=== PATIENT | male | born 1935 | race Caucasian/White ===

== ENCOUNTER 2016-12-29 09:46 | Inpatient (IN) | payer MEDICARE, BC ==
[~2016-12-29] VITALS: Ht 167.6 cm; Wt 57.3 kg
[2016-12-29] MEDS ORDERED: ALPR.5 PO (12:47)
[2016-12-29] MEDS ORDERED: MELO7.5T4 PO (12:47)
[2016-12-29] MEDS ORDERED: XARE15TA PO (12:47)
[2016-12-29] MEDS ORDERED: BUTA1CAP PO (12:47)
[2016-12-29] MEDS ORDERED: LOVA20TA PO (12:47)
[2016-12-29] MEDS ORDERED: GABA600T PO (12:47)
[2016-12-29] MEDS ORDERED: ASPI1TAB69 PO (12:47)
--- NOTE | 2017-01-01 12:28 | MH ---
cc: NASIR FERNANDEZ M.D. DATE OF ADMISSION 01/07/2017 ADMITTING DIAGNOSIS Severe osteoarthritis of the left knee, varus deformity left knee, patellofemoral disorder left knee, pain left knee. HISTORY The patient is an 81-year-old white male who has had a rather lengthy history of pain involving his left knee. In October of 2012, he underwent a right total knee arthroplasty for a history of osteoarthritis and at that time he was aware of similar pain of a lesser degree involving his left knee. Symptoms involving his left knee were tolerable and the patient elected to continue with conservative management doing reasonably well while completing his postop rehabilitation following his right knee surgery. He presented to the office in October of 2014 and at that time he reported that during the previous six months, he was becoming progressively more symptomatic with pain about the left knee with a frequent grinding like sensation. He had been taking Naprosyn for pain management with only minimal benefit described. His x-ray studies at that time revealed obvious degenerative change with near [id number]-[id number] apposition about the medial compartment, associated with a genu varus deformity of approximately 10 degrees magnitude and intra-articular calcification throughout the lateral compartment. Findings and treatment options were reviewed with the patient at that time. He elected to continue with conservative management for which he was prescribed Meloxicam 15 mg and thereafter continuing to conform to his own exercise program feeling that he would be able to achieve as much benefit as returning to any form of therapy intervention. He returned to the office in November of this year indicating that with the passage of time, he was becoming increasingly more symptomatic with pain that began to interfere with all ambulatory activities. He was accustomed to conforming to ballroom dancing with his at least three times per week but had to discontinue this routine because of increasing symptoms involving his left knee. His more current x-ray studies revealed obvious degenerative change with oozq-hj-dhgy apposition throughout the medial compartment with an associated varus deformity of 10 degrees magnitude and intra-articular calcification throughout the lateral compartment secondary to degenerative involvement of the patellofemoral articulation. Findings and treatment options were again reviewed with the patient. The pros and cons of continuing with conservative management versus operative intervention involving a total knee arthroplasty were outlined in detail. Emphasis was made regarding the fact that the decision to proceed with surgery would be left entirely to the patient's discretion. The patient felt that he had exhausted all modes of conservative treatment and given the progressive nature of his pain involving his left knee, in conjunction with the favorable response that he had noted following surgery of his right knee, he expressed a desire to proceed with such treatment at this time. In compliance with his wishes, he is currently being admitted in order that left total knee replacement be accomplished. PAST MEDICAL HISTORY Hospitalizations and surgeries in addition to his right total knee arthroplasty included: 1. Previous arthroscopic surgery of his right knee 2. Cardiac bypass surgery His medical illnesses include: 1. Atrial fibrillation 2. Elevated cholesterol 3. Peripheral neuropathy MEDICATIONS current medications: 1. Xanax 0.5 mg daily 2. Lovastatin 20 mg daily 3. Meloxicam 7.5 mg daily 4. Fioricet as needed 5. Gabapentin 600 mg twice daily 6. 81 mg Aspirin tablet daily 7. Xarelto 15 mg daily ALLERGIES The patient denies any known drug allergies. REVIEW OF SYSTEMS He does wear glasses. He has had a history of migraine headaches. No seizure or syncope. Occasional sinus congestion. No epistaxis. Auditory acuity intact. No tinnitus. No bleeding gums or dysphagia. No cough, shortness of breath, upper respiratory infection, pneumonia or tuberculosis. No angina. He is medically managed for atrial fibrillation. Appetite good. Occasional constipation treated with pgyj-rkk-oslpmix products. No hepatitis, gallbladder disease or ulcers. He has had previous hemorrhoids. No urinary tract infection. No kidney stones. No prostate disease. Fracture of the right index finger treated by splint immobilization and psychiatric management for anxiety disorder. His remaining review of systems is unremarkable and noncontributory. FAMILY HISTORY The patient has been 60 years. His is 79 years of age and noted to be in good health. One son and two daughters indicated to be in good health. Family history is positive for heart disease and lung cancer. 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 He completed a high school education. Denies active use of tobacco and ethanol consumption for greater than 30 years, but had been a reasonably heavy drinker in his past. PHYSICAL EXAMINATION Height 5 feet 6 inches, weight 143 pounds. GENERAL: An alert, oriented responsive 81-year-old white male who sits quietly upon examination table with no apparent distress. HEAD, EYES, EARS, NOSE, AND THROAT: Pupils are equally round and reactive to light. Extraocular movements full with bilateral corneal arcus. Sclerae clear. External nares clear. External auditory canals clear. Dental intact. Mucous membranes pink and moist. Pharynx clear. NECK: Supple. Active range of motion without significant pain. Carotid pulse bilaterally. Trachea midline. Thyroid without enlargement. LUNGS: Clear to auscultation and percussion. No CVA tenderness. No discomfort throughout the dorsal lumbar spine. HEART: Regular irregular rhythm without murmur or gallop. ABDOMEN: Soft, nontender. Bowel sounds present. RECTAL: Per primary care physician. EXTREMITIES: Left knee, no significant swelling or effusion. There is slight varus deformity, medial joint line tenderness without palpable deformity. Apprehension and compression sign negative. Limited mobility in the 100 degrees range of motion with pain at the extreme of mobility, minimal crepitation elicited. No collateral ligamentous instability. Amy test and drawer sign negative. Pivot shift and Edna sign positive for medial compartment pain. Straight-leg raising negative at 80 degrees. Mild antalgic gait. NEUROLOGIC: Cranial nerves II-XII grossly intact. IMPRESSION Severe osteoarthritis of the left knee, varus deformity left knee patellofemoral disorder left knee, pain left knee. PLAN Left total knee arthroplasty. The nature of the planned surgical procedure, the potential complications and risks associated, the expectations of surgery and the consent form were thoroughly reviewed with the patient in the presence of his prior to admission to the hospital. Garrison has indicated his full understanding regarding all of the above and given consent to proceed with treatment as outlined. Medical evaluation and clearance for surgery will be completed by his primary care physician Dr. Carbone, cardiology clearance per Dr. Hardin. MD MARSHA Hussein/[place] /11:51 AM /12:04 PM
--- NOTE | 2017-01-12 09:00 | MH ---
cc: NASIR FERNANDEZ DATE OF ADMISSION: 01/14/2017 ADMITTING DIAGNOSIS Severe osteoarthritis of the left knee, varus deformity left knee, patellofemoral disorder left knee, pain left knee. HISTORY OF PRESENT ILLNESS The patient is an 81-year-old white male who has had a rather lengthy history of pain involving his left knee. In October of 2012, he underwent a right total knee arthroplasty for a history of osteoarthritis and at that time he was aware of similar pain of a lesser degree involving his left knee. Symptoms involving his left knee were tolerable and the patient elected to continue with conservative management doing reasonably well while completing his post-op rehabilitation following his right knee surgery. He presented to the office in October of 2014 and at that time he reported that during the previous six months, he was becoming progressively more symptomatic with pain about the left knee with a frequent grinding like sensation. He had been taking Naprosyn for pain management with only minimal benefit described. His x-ray studies at that time revealed obvious degenerative change with near expm-aw-kxrr apposition about the medial compartment, associated with a genu varus deformity of approximately 10 degrees magnitude and intra-articular calcification throughout the lateral compartment. Findings and treatment options were reviewed with the patient at that time. He elected to continue with conservative management for which he was prescribed Meloxicam 15 mg and thereafter continuing to conform to his own exercise program feeling that he would be able to achieve as much benefit as returning to any form of therapy intervention. He returned to the office in November of this year indicating that with the passage of time, he was becoming increasingly more symptomatic with pain that began to interfere with all ambulatory activities. He was accustomed to conforming to ballroom dancing with his at least three times per week but had to discontinue this routine because of increasing symptoms involving his left knee. His more current x-ray studies revealed obvious degenerative change with yxgq-jl-wlzl apposition throughout the medial compartment with an associated varus deformity of 10 degrees magnitude and intra-articular calcification throughout the lateral compartment secondary to degenerative involvement of the patellofemoral articulation. Findings and treatment options were again reviewed with the patient. The pros and cons of continuing with conservative management versus operative intervention involving a total knee arthroplasty were outlined in detail. Emphasis was made regarding the fact that the decision to proceed with surgery would be left entirely to the patient's discretion. The patient felt that he had exhausted all modes of conservative treatment and given the progressive nature of his pain involving his left knee, in conjunction with the favorable response that he had noted following surgery of his right knee, he expressed a desire to proceed with such treatment at this time. In compliance with his wishes, he is currently being admitted in order that left total knee replacement be accomplished. PAST MEDICAL HISTORY Hospitalizations and surgeries in addition to his right total knee arthroplasty included: 1. Previous arthroscopic surgery of his right knee. 2. Cardiac bypass surgery. His medical illnesses include: 1. Atrial fibrillation. 2. Elevated cholesterol. 3. Peripheral neuropathy MEDICATIONS Current medications: 1. Xanax 0.5 mg daily. 2. Lovastatin 20 mg daily. 3. Meloxicam 7.5 mg daily. 4. Fioricet as needed. 5. Gabapentin 600 mg twice daily. 6. 81 mg aspirin tablet daily. 7. Xarelto 15 mg daily. ALLERGIES The patient denies any known drug allergies. REVIEW OF SYSTEMS He does wear glasses. He has had a history of migraine headaches. No seizure or syncope. Occasional sinus congestion. No epistaxis. Auditory acuity intact. No tinnitus. No bleeding gums or dysphagia. No cough, shortness of breath, upper respiratory infection, pneumonia or tuberculosis. No angina. He is medically managed for atrial fibrillation. Appetite good. Occasional constipation treated with znwc-ucj-snxaqtn products. No hepatitis, gallbladder disease or ulcers. He has had previous hemorrhoids. No urinary tract infection. No kidney stones. No prostate disease. Fracture of the right index finger treated by splint immobilization and psychiatric management for anxiety disorder. His remaining review of systems is unremarkable and noncontributory. FAMILY HISTORY The patient has been 60 years. His is 79 years of age and noted to be in good health. One son and two daughters indicated to be in good health. Family history is positive for heart disease and lung cancer. 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 He completed a high school education. Denies active use of tobacco and ethanol consumption for greater than 30 years, but had been a reasonably heavy drinker in his past. PHYSICAL EXAMINATION Height 5 feet 6 inches, weight 143 pounds. GENERAL: An alert, oriented and responsive 81-year-old white male who sits quietly upon the examination table with no apparent distress. HEAD, EYES, EARS, NOSE, AND THROAT: Pupils are equally round and reactive to light. Extraocular movements full with bilateral corneal arcus. Sclerae clear. External nares clear. External auditory canals clear. Dental intact. Mucous membranes pink and moist. Pharynx clear. NECK: Supple. Active range of motion without significant pain. Carotid pulse bilaterally. Trachea midline. Thyroid without enlargement. LUNGS: Clear to auscultation and percussion. No CVA tenderness. No discomfort throughout the dorsolumbar spine. HEART: Irregular rhythm without murmur or gallop. ABDOMEN: Soft, nontender. Bowel sounds present. RECTAL: Per primary care physician. EXTREMITIES: Left knee, no significant swelling or effusion. There is slight varus deformity, medial joint line tenderness without palpable deformity. Apprehension and compression sign negative. Limited mobility in the 100 degrees range of motion with pain at the extreme of mobility, minimal crepitation elicited. No collateral ligamentous instability. Amy test and drawer sign negative. Pivot shift and Edna sign positive for medial compartment pain. Straight-leg raising negative at 80 degrees. Mild antalgic gait. NEUROLOGIC: Cranial nerves II-XII grossly intact. IMPRESSION Severe osteoarthritis of the left knee, varus deformity left knee patellofemoral disorder left knee, pain left knee. PLAN Left total knee arthroplasty. The nature of the planned surgical procedure, the potential complications and risks associated, the expectations of surgery and the consent form were thoroughly reviewed with the patient in the presence of his prior to admission to the hospital. Garrison has indicated his full understanding regarding all of the above and given consent to proceed with treatment as outlined. Medical evaluation and clearance for surgery will be completed by his primary care physician Dr. Carbone, cardiology clearance per Dr. Hardin. ADDENDUM Mr. Garcia is an 81-year-old white male who had recently been scheduled to be admitted to the hospital in anticipation of undergoing a left total knee arthroplasty for history of severe osteoarthritis of his left knee. Unfortunately, several days prior to that scheduled admission the patient experienced the onset of acute pain and spasm involving his cervical spine for which he was significantly incapacitated with regards to his daily routine. He was seen in the emergency room of [facility] where he was prescribed medication and presented to the undersigned physician on the day prior to his scheduled admission. X-ray studies at that time did reveal severe osteoarthritis throughout the cervical spine region for which the patient was advised to postpone surgery until his symptoms had improved. He was treated with a steroid injection followed by a Dosepak that did significantly improve his symptoms within several days. The patient contacted the office thereafter indicating his desire to proceed with surgery as had previously been scheduled and in compliance with his wishes he was scheduled for readmission at this time in order that the above be accomplished. The remaining details of his history as well as the pertinent findings of his physical examination remain unchanged at this time. The patient again indicates his understanding regarding the nature of the planned surgical procedure, potential complications and risks associated, expectations of surgery and consent form and expressed his desire and consent to proceed with surgery as planned. MD MARSHA Hussein/BT /8:45 AM /8:50 AM
[2017-01-14] MEDS ORDERED: CHLORHEXIDINE GLUCONATE 2 % 1 PACK (2 CLOTHS) TOPICAL PRN (06:30)
[2017-01-14] MEDS ORDERED: SODIUM CHLORID 0.9% 500 ML IV PRN (06:30)
[2017-01-14] MEDS ORDERED: INSULIN HUMAN REGULAR 1,000 UNITS/10 ML VIAL SQ PRN (06:30)
[2017-01-14] MEDS ORDERED: POVIDONE IODINE 5% (ANTISEPSIS KIT) 4 APPLICATIONS EACH NARE PRN (06:30)
[2017-01-14] MEDS ORDERED: LACTATED RINGER'S 1000 ML IV PRN (06:30)
[2017-01-14] MEDS ORDERED: METOPROLOL TARTRATE 25 MG TAB PO PRN (06:30)
[2017-01-14] MEDS ORDERED: ceFAZolin 2 GM PREMIX 50 ML IV SCH (06:45)
[2017-01-14] MEDS ORDERED: POVIDONE IODINE 7.5% SCRUB 118 ML BOTTLE TOPICAL SCH (06:45)
[2017-01-14] MEDS ORDERED: ROPIVACAINE 0.5% PF INJ 30 ML VIAL NERV BLOCK ONE (07:38)
[2017-01-14 07:50] VITALS: BP 145/95; PULSE 80; RESP 20; TEMP 97.9; O2SAT 95
[2017-01-14] MEDS ORDERED: ceFAZolin INJ 1,000 MG VIAL ONE (07:58)
[2017-01-14] MEDS ORDERED: DEXAMETHASONE SOD PHOS 4 MG/ML VIAL ONE (08:58)
[2017-01-14] MEDS ORDERED: FAMOTIDINE 20 MG/2 ML VIAL ONE (08:59)
[2017-01-14] MEDS ORDERED: TRANEXAMIC ACID 1 GM PRIOR TO PROCEDURE IV SCH ×2 (09:30)
[2017-01-14] MEDS ORDERED: MIDAZOLAM HCL 2 MG/2 ML VIAL ONE ×2 (09:34→09:38)
[2017-01-14] MEDS ORDERED: ACETAMINOPHEN 1000 MG/100 ML VIAL IV ONE (09:38)
[2017-01-14] MEDS ORDERED: PROPOFOL 200 MG/20 ML AMP IV ONE (10:15)
[2017-01-14] MEDS ORDERED: ePHEDrine/NS 25 MG/5 ML SYR IV ONE (10:16)
[2017-01-14] MEDS ORDERED: TRANEXAMIC ACID INJ 1,000 MG/10 ML AMP IV ONE (11:39)
[2017-01-14] MEDS: DEXT 5%-NACL 0.45% 1000 ML INJ 1,000 ML IV SCH ×2 (12:28→21:20)
[2017-01-14] MEDS ORDERED: ZOLPIDEM TARTRATE 5 MG TAB PO PRN (12:30)
[2017-01-14] MEDS ORDERED: MISCELLANEOUS PHARMACY INFORMATION XX ONE (12:30)
[2017-01-14] MEDS ORDERED: ACETAMINOPHEN 325 MG TAB PO PRN (12:30)
[2017-01-14] MEDS ORDERED: NALOXONE HCL 0.4 MG/ML AMP IV PRN (12:30)
[2017-01-14] MEDS ORDERED: TRANEXAMIC ACID INJ 1,000 MG in SODIUM CHLORIDE 0.9% INJ 100 ML IV SCH (12:30)
[2017-01-14] MEDS ORDERED: SODIUM CHLORIDE 0.9% FLUSH 5 ML FLUSH IVF PRN (12:30)
[2017-01-14] MEDS ORDERED: diphenhydrAMINE HCL 25 MG CAP PO PRN (12:30)
[2017-01-14] MEDS ORDERED: MORPHINE SULFATE 30 MG/30 ML PCA IV SCH (12:30)
[2017-01-14] MEDS ORDERED: DOCUSATE SODIUM 100 MG CAP PO PRN (12:30)
[2017-01-14] MEDS ORDERED: Post-op Orders (for Pharmacy) MISC XX ONE (12:30)
[2017-01-14] MEDS ORDERED: TRANEXAMIC ACID 1 GM POST-OP IV SCH ×2 (12:30)
--- NOTE | 2017-01-14 13:01 | MP ---
cc: NASIR FERNANDEZ DATE OF SURGERY January 14, 2017 PREOPERATIVE DIAGNOSIS Severe osteoarthritis of the left knee with varus deformity and patellofemoral disorder and pain of the left knee. POSTOPERATIVE DIAGNOSIS Severe osteoarthritis of the left knee with varus deformity and patellofemoral disorder and pain of the left knee. PROCEDURE Left total knee arthroplasty. SURGEON MD Chastity ANESTHESIA Spinal. INDICATIONS An 81-year-old white male with a lengthy history of left knee pain. In October of 2012 he had undergone a right total knee arthroplasty for history of osteoarthritis and at that time he was aware of similar pain but of a lesser degree involving his left knee. His left knee symptoms were tolerable at that time and the patient elected to continue with conservative management while completing his postoperative rehabilitation following his right knee surgery. He presented to the office in October of 2014 and at that time reported that during the previous 6 months he was becoming progressively more symptomatic with pain about his left knee with a frequent grinding-like sensation. He had been taking Naprosyn for pain management with only minimal benefit described. His x-ray studies revealed obvious degenerative changes with near otil-oy-jhqk apposition about the medial compartment associated with a genu varus deformity of approximately 10 degrees magnitude and intraarticular calcification throughout the lateral compartment. Findings and treatment options were reviewed with the patient at that time. He elected to continue with conservative management for which he was prescribed meloxicam 15 mg and encouraged to conform to his own exercise program for which the patient indicates that he felt he was able to achieve as much benefit as returning to any form of therapy intervention. He returned to the office in November of this year indicating that with the passage of time he was becoming increasingly more symptomatic with pain that began to interfere with all ambulatory activities. He was accustomed to conform to ballroom dancing with his at least three times per week but had to discontinue this routine because of his increasing symptoms. His more current x-ray studies revealed obvious degenerative change with clmk-ju-ecmq apposition throughout the medial compartment with a varus deformity of 10 degrees magnitude and intraarticular calcification, again most pronounced about the lateral compartment and secondary degenerative involvement with patellofemoral articulation. Findings and treatment options were again reviewed. The pros and cons of continuing with further conservative management versus operative intervention involving total knee arthroplasty were outlined in detail. Emphasis was made regarding the fact that the decision to proceed with surgery would be left entirely to the patient's discretion. The patient felt that he had exhausted all modes of conservative treatment and, given the progressive nature of his pain and associated limitations, he was desirous of proceeding with operative intervention as discussed. In compliance with his wishes, he is currently being admitted in order that total knee replacement be completed. FORMAT Following induction of satisfactory spinal anesthesia as completed per the Department of Anesthesia, a tourniquet was established around the proximal portion of the left lower extremity. The extremity proper was isolated with a U drape, thereafter being prepped with Betadine solution and draped into a sterile field in the routine manner. Prior to initiation of the actual procedure the standard time-out protocol was completed. All parameters were appropriately addressed and confirmed by operating room personnel. The extremity was elevated for approximately 1 minute and the tourniquet thus inflated to 250 mmHg pressure. A sharp skin incision was initiated midline over the anterior aspect of the knee and developed through underlying subcutaneous tissue with hemostasis maintained by electrocautery. By deepening dissection the anterior capsule was exposed, a medial capsulotomy completed and the patella subluxed in a lateral orientation. Examination of the joint space revealed severe tricompartmental degenerative changes with significant attenuation of the anterior cruciate ligament. The articular surface of the patella was resected with a power saw. The three-holed guide was utilized for establishing post holes. The remnant of the anterior cruciate ligament as well as medial and lateral meniscus structures were sharply excised. A centering hole was placed in the distal aspect of the femur allowing positioning of the intramedullary guide. The distal femoral cutting jig was attached and the distal femur resected. AP measurement noted 70-mm sizing to be appropriate. The matching cutting block was positioned. Anterior, posterior and chamfer cuts were completed. The tibial plateau was thereafter subluxed in an anterior orientation allowing positioning of the extramedullary guide. The tibial plateau was resected and measured with 79-mm sizing determined to be satisfactory. A trial reduction followed utilizing a 70-mm anatomic femoral component, a 79-mm tibial base with both 10 and 12-mm bearing inserts trialed; the 12-mm thickness was determined to be the more favorable fit. The knee was readily brought to full extension. There was no laxity to varus or valgus stress at both 0 and 90 degrees flexed posture. Orientation was confirmed as being appropriate with measurement of the pelvic guide through the mechanical axis of the knee. A trial reduction followed utilizing a 34-mm standard three post patellar button, once again good tracking demonstrated with no tendency toward subluxation. All trial components were thereafter removed. The remaining portion of the proximal tibia was prepared for insertion of the permanent component. The joint space was thoroughly lavaged with pulsating antibiotic solution and autogenous bone plug was inserted into the distal femoral guide hole. Thereafter preparation of [place]os bone cement was utilized in inserting knee components in a sequential fashion which included a 79-mm fixed cruciate tibial plate to which a 12-mm Vanguard tibial bearing insert was secured with locking orosco. The 70-mm Vanguard femoral component was firmly seated onto the distal femur, excess cement being removed. The knee was brought to full extension and thereafter the 34-mm standard three post patellar button was attached and maintained in place with the patellar clamp while cement hardening was completed. Final range of motion assessment noted good tracking and stability throughout the knee. Irrigation was repeated with hemostasis maintained. Autovac drain tubes were inserted through superior stab wounds. The capsule was repaired with 0 Vicryl suture. The remaining portion of the wound was closed in layers in the routine manner, skin margins being reapproximated with a running subcuticular 3-0 Vicryl suture over which Steri-Strips were applied. Xeroform gauze and a bulky dry sterile dressing were placed. The tourniquet was deflated after 54 minutes of tourniquet time, the extremity being supported in a canvas knee splint. Anesthesia was discontinued. The patient was thus transferred to a hospital bed and returned to the recovery room in satisfactory condition having tolerated his operative procedure well. Estimated blood loss was approximately 100 cc as determined per Anesthesia. 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 MD MARSHA Hussein/AVNI /12:23 PM /12:38 PM
--- NOTE | 2017-01-14 13:29 | RADRPT ---
EXAM DATE/TIME: 01/14/2017 12:40 [place] COMPARISON: No previous studies available for comparison. INDICATIONS : Post op left knee replacement. MEDICAL HISTORY : None. SURGICAL HISTORY : None. ENCOUNTER: Initial ACUITY: 1 day PAIN SCORE: Non-responsive. LOCATION: Left knee. FINDINGS: Total knee arthroplasty is present. The hardware is intact. The alignment is anatomic. Surgical drain s are present. CONCLUSION: Satisfactory appearance post left TKA Americo Stovall MD on January 14, 2017 at 13:27 Board Certified Radiologist. This report was verified electronically.
[2017-01-14] MEDS: PCA - TOTAL MG MORPHINE DELIVERED PER SHIFT SCH ×2 (14:00→21:30)
[2017-01-14] MEDS ORDERED: *ENALAPRILAT 1.25 MG/ML VIAL PERIprocedural Use ONLY ONE (14:18)
[2017-01-14] MEDS ORDERED: *ONDANSETRON 4 MG VIAL PERIprocedural Use ONLY ONE (14:48)
[2017-01-14 17:57] VITALS: BP 133/93; PULSE 99; RESP 18; TEMP 95.6; O2SAT 94
--- NOTE | 2017-01-14 18:56 | PD.CONS ---
HPI Service [facility] Hospitalists Consult Requested By Dr. Haywood Reason for Consult Medical management. Primary Care Physician Peter Carbone MD Diagnoses: History of Present Illness Written by Nicole Watson, acting as scribe for Dr. Yoo on 01/14/17 at 18:53. Mr. Garcia is an 81-year-old male with a known medical history of atrial fibrillation on Xarelto, dyslipidemia, peripheral neuropathy, CABG x 5 and history of right total knee arthroplasty who is status post left total knee arthroplasty today by Dr. Haywood. Supposedly patient has had severe osteoarthritis of the left knee for several years now. Patient had initially underwent a total right knee arthroplasty in 2013 with complaints of similar symptoms in his left knee but at that time patient had decided to attempt to control symptoms conservatively which included NSAIDs, muscle relaxants and exercise programs which were to minimal benefit, therefore the patient decided to undergo arthroplasty to his left knee. Hospitalist group has been consulted for medical management. Patient seen and examined. Patient awake, alert and oriented, states pain is relatively controlled on bedside CERTIFIED DETENTION DEPUTY and status post nerve block. Denies any recent fever, chills, cough, shortness of breath, chest pain, palpitations, abdominal pain, n/v, or dysuria. Afebrile. Vitals stable at this time. Review of Systems Except as stated in HPI: all other systems reviewed are Neg Past Family Social History Allergies: Coded Allergies: No Known Allergies (Unverified , 01/14/17) Past Medical History Atrial fibrillation Dyslipidemia Peripheral neuropathy Past Surgical History Right total knee arthroplasty CAGB x 5 Reported Medications Active Reported Xarelto (Rivaroxaban) 15 Mg Tab 15 Mg PO DAILY Aspirin 81 Mg Tabdr 81 Mg PO DAILY Gabapentin 600 Mg Tab 600 Mg PO BID Fioricet (Lauqlqxxts-Aywkbfghwjkog-Patzcfkc) 50-300-40 Mg Cap 1 Cap PO Q4H PRN Meloxicam 7.5 Mg Tab 7.5 Mg PO DAILY Lovastatin 20 Mg Tab 20 Mg PO HS Xanax (Alprazolam) 0.5 Mg Tab 0.5 Mg PO DAILY Active Ordered Medications Current Medications Medications (Trade) Dose Ordered Sig/Kayleen Route Start Time Stop Time Status Last Admin Lactated Ringer's 1,000 ml @ 30 mls/hr Q24H PRN IV 01/14/17 06:30 01/17/17 06:29 01/14/17 07:30 (NS 500 ml Inj) 500 ml @ 30 mls/hr [id number] PRN IV 01/14/17 06:30 01/17/17 06:29 Povidone Iodine 1 applic 1 applic ONCE TOPICAL 01/14/17 06:45 01/17/17 06:44 01/14/17 08:06 (Cyklokapron Inj/ NS Inj) 110 ml @ 220 mls/hr ONCE IV 01/14/17 12:30 01/14/17 18:30 (NS Flush) 2 ml UNSCH PRN IVF 01/14/17 12:30 IV Flush 2 ml 2 ml BID IVF 01/14/17 21:00 (Ancef Inj/NS Inj) 100 ml @ 200 mls/hr Q6H IV 01/14/17 17:00 01/15/17 05:29 01/14/17 16:59 (Xarelto) 10 mg Q24H PO 01/15/17 11:30 ([place] 5-325 Mg) 1 tab Q4H PRN PO 01/14/17 12:30 ([place] 5-325 Mg) 2 tab Q4H PRN PO 01/14/17 12:30 (Tylenol) 650 mg Q6H PRN PO 01/14/17 12:30 (Zofran Inj) 4 mg Q6H PRN IVP 01/14/17 12:30 (Colace) 100 mg BID PRN PO 01/14/17 12:30 (Ambien) 5 mg HS PRN PO 01/14/17 12:30 (Narcan Inj) 0.4 mg UNSCH PRN IV 01/14/17 12:30 (Benadryl) 25 mg Q6H PRN PO 01/14/17 12:30 (Morphine 1 Mg/ ml CERTIFIED DETENTION DEPUTY) 30 mg UNSCH IV 01/14/17 12:30 01/14/17 13:09 CERTIFIED DETENTION DEPUTY Dosage Infused (Pha) 1 1 Q8HR .XX 01/14/17 14:00 (D5W-1/2 NS 1000 ml Inj) 1,000 ml @ 125 mls/hr Q8H IV 01/14/17 12:28 01/14/17 12:28 Family History Paternal medical history significant for tobacco history and lung cancer, at the age of 65. Maternal medical history unknown. Social History Patient is to for 60 years. Denies any tobacco, alcohol, or illicit drug use. Physical Exam Vital Signs Vital Signs Date Time Temp Pulse Resp B/P Pulse Ox O2 Delivery O2 Flow Rate FiO2 01/14/17 13:45 92 20 170/81 94 Room Air 01/14/17 13:30 87 20 178/87 95 Room Air 01/14/17 13:15 82 20 164/84 95 Room Air 01/14/17 13:09 20 01/14/17 13:00 85 20 167/76 94 Room Air 01/14/17 12:45 86 20 134/87 94 Room Air 01/14/17 12:31 98.1 91 20 123/81 96 Nasal Cannula 2 01/14/17 07:50 97.9 80 20 145/95 95 Physical Exam GENERAL: Well-nourished, well-developed patient, in no apparent distress. SKIN: No rashes, ecchymoses or lesions. Warm and dry. Left leg in passive motion as ordered. Status post nerve block. Dressings intact, clean, dry. HEENT: Atraumatic. Normocephalic. Pupils equal round and reactive. No scleral icterus. No injection or drainage. Nose without bleeding. Airway patent. NECK: Trachea midline. No JVD or lymphadenopathy. Supple. CARDIOVASCULAR:Irregular rhythm, controlled rate. Systolic murmur noted. RESPIRATORY: Clear to auscultation. Breath sounds equal bilaterally. No wheezes , rales, or rhonchi. GASTROINTESTINAL: Abdomen soft, non-tender, nondistended. No hepato-splenomegaly , or palpable masses. No guarding. MUSCULOSKELETAL: Extremities without clubbing, cyanosis, or edema. Status post left total knee arthroplasty, dressing intact with passive motion. NEUROLOGICAL: Awake and alert. Cranial nerves II through XII intact. Motor and sensory grossly within normal limits. Normal speech. Laboratory Laboratory Tests Test 01/14/17 07:25 Blood Type O POSITIVE Antibody Screen NEGATIVE Imaging Last Impressions Knee X-Ray 01/14/17 1228 Signed Impressions: Service Date/Time: Saturday, January 14, 2017 12:40 - CONCLUSION: Satisfactory appearance post left TKA Americo Stovall MD Assessment and Plan Assessment and Plan Mr. Garcia is an 81-year-old male with a known medical history of atrial fibrillation on Xarelto, dyslipidemia, peripheral neuropathy, CABG x 5 and history of right total knee arthroplasty who is status post left total knee arthroplasty today by Dr. Haywood. Supposedly patient has had severe osteoarthritis of the left knee for several years now. Patient had initially underwent a total right knee arthroplasty in 2013 with complaints of similar symptoms in his left knee but at that time patient had decided to attempt to control symptoms conservatively which included NSAIDs, muscle relaxants and exercise programs which were to minimal benefit and the patient decided to undergo arthroplasty to his left knee. Hospitalist group has been consulted for medical management. Status post left total knee arthroplasty - Post op day 0. - Control pain, Morphine IV CERTIFIED DETENTION DEPUTY at bedside and [place] PO PRN available per pain scale. Monitor nausea, Zofran PRN. Monitor for constipation, Colace PRN. - Ancef 1 g IV x 3 bags post operatively. - Continue D5NS at 125 ml/hr. Encourage PO intake. - Encourage use of Incentive Spirometer. - Dressing and passive motion per surgery recommendations. Hypertension - No history of hypertension. - Post operatively BP is systolic in the 170's. Probably pain related, adequately control pain. - Vasotec PRN available. Atrial fibrillation, chronic. Controlled. - Continue home Xarelto 10 mg PO daily. - EKG reviewed and showing atrial fibrillation, controlled rate. DVT prophylaxis: SCDs. Surgery recommendations to restart home Xarelto 10 mg PO daily tomorrow. Other chronic medical problems include dyslipidemia and peripheral neuropathy and are stable at this time. Home medications restarted as indicated. Thank you for this consult, we will follow with you. This note was transcribed by drew Watson. I, Dr. Rober Yoo personally performed the history, physical exam, and medical decision making; and confirmed the accuracy of the information in the transcribed note. Authenticated by Dr. Rober Yoo on 01/14/17 at 18:53. Code Status Full code Discussed Condition With Patient Nicole Watson January 14, 2017 18:56 Rober Yoo MD January 14, 2017 19:16
[2017-01-14] MEDS: ONDANSETRON HCL 4 MG/2 ML VIAL IVP PRN (19:12)
[2017-01-14] MEDS ORDERED: ENALAPRILAT 1.25 MG/ML VIAL IV PUSH PRN (19:15)
--- NOTE | 2017-01-14 19:24 | EKG ---
Date Performed: 01/14/2017 Time Performed: 08:12:08 PTAGE: 81 years EKG: ATRIAL FIBRILLATION POSSIBLE RIGHT VENTRICULAR CONDUCTION DELAY LEFT ANTERIOR FASCICULAR BL OCK SEPTAL Q WAVES PREVIOUS TRACING : 09/13/2012 11.00 Compared to prior tracing no significant change DOCTOR: Earlene Dykes Interpretating Date/Time 01/14/2017 19:22:31
[2017-01-14 20:10] VITALS: BP 131/83; PULSE 76; RESP 17; TEMP 96.7; O2SAT 97
[2017-01-14] MEDS: SODIUM CHLORIDE 0.9% FLUSH 5 ML FLUSH IVF SCH (21:20)
[2017-01-15 00:45] VITALS: BP 148/93; PULSE 87; RESP 17; TEMP 96.3; O2SAT 95
[2017-01-15] MEDS: CALCIUM CARBONATE 500 MG CHEWABLE TAB CHEW PRN ×2 (04:16→10:18)
[2017-01-15] MEDS: ONDANSETRON HCL 4 MG/2 ML VIAL IVP PRN ×2 (04:17→10:17)
[2017-01-15] MEDS: PCA - TOTAL MG MORPHINE DELIVERED PER SHIFT SCH ×3 (04:26→21:34)
[2017-01-15] MEDS: DEXT 5%-NACL 0.45% 1000 ML INJ 1,000 ML IV SCH ×2 (04:28→12:28)
[2017-01-15 04:30] VITALS: BP 161/90; PULSE 86; RESP 17; TEMP 96.9; O2SAT 96
[2017-01-15 05:46] LABS: HEMATOCRIT 39.9 % (39.0-51.0); REVIEW FLAG FINAL
[2017-01-15] MEDS ORDERED: HYDR-3516 PO (06:26)
--- NOTE | 2017-01-15 06:28 | HHI.FF ---
Face to Face Verification Diagnosis: (1) DJD (degenerative joint disease) of knee Physical Therapy Gait training Knee: Total knee, Protocol: Left Right LE Range of Motion: Active ROM Left LE Weight Bearing: WB as tolerated Left LE Range of Motion: Active ROM Nursing Dressing Changes: Daily dressing change I have seen patient aYkov Garcia on 01/15/17. My clinical findings support the need for the requested home health care services because: Limited ability to care for self High risk of falls I certify that my clinical findings support that this patient is homebound because: Post-op weakness Unsteady gait/balance Unsafe to leave home unassisted Rodriguez Haywood MD January 15, 2017 06:28
[2017-01-15] MEDS ORDERED: walker with wheels (06:30)
[2017-01-15 07:44] VITALS: BP 137/73; PULSE 93; RESP 16; TEMP 95.6; O2SAT 97
[2017-01-15] MEDS: SODIUM CHLORIDE 0.9% FLUSH 5 ML FLUSH IVF SCH ×2 (09:00→21:23)
--- NOTE | 2017-01-15 10:38 | HHI.PR ---
Subjective Remarks Patient seen and examined Complains of left lower extremity pain. Currently afebrile. Objective Vitals Vital Signs Date Time Temp Pulse Resp B/P Pulse Ox O2 Delivery O2 Flow Rate FiO2 01/15/17 07:44 95.6 93 16 137/73 97 01/15/17 04:30 96.9 86 17 161/90 96 01/15/17 04:26 16 01/15/17 00:45 96.3 87 17 148/93 95 01/14/17 21:30 18 01/14/17 20:10 96.7 76 17 131/83 97 01/14/17 19:44 21 01/14/17 17:57 95.6 99 18 133/93 94 01/14/17 17:00 80 20 133/69 95 Room Air 01/14/17 16:00 86 20 140/63 93 Room Air 01/14/17 15:00 92 20 148/91 97 Room Air 01/14/17 14:00 85 20 161/91 94 Room Air 01/14/17 13:45 92 20 170/81 94 Room Air 01/14/17 13:30 87 20 178/87 95 Room Air 01/14/17 13:15 82 20 164/84 95 Room Air 01/14/17 13:09 20 01/14/17 13:00 85 20 167/76 94 Room Air 01/14/17 12:45 86 20 134/87 94 Room Air 01/14/17 12:31 98.1 91 20 123/81 96 Nasal Cannula 2 I/O 01/14/17 01/14/17 01/14/17 01/15/17 01/15/17 01/15/17 07:00 15:00 23:00 07:00 15:00 23:00 Intake Total 1400 ml 1359 ml 980 ml Output Total 350 ml 630 ml 350 ml Balance 1050 ml 729 ml 630 ml Intake Oral 240 ml 240 ml IV Total 300 ml 1119 ml 740 ml Other 1100 ml Output Urine Total 250 ml 600 ml 300 ml Drainage Total 30 ml 50 ml Estimated Blood Loss 100 ml # Voids 1 1 # Bowel Movements 0 0 Result Diagram: 01/15/17 0501 Imaging Last Impressions Knee X-Ray 01/14/17 1228 Signed Impressions: Service Date/Time: Saturday, January 14, 2017 12:40 - CONCLUSION: Satisfactory appearance post left TKA Americo Stovall MD Objective Remarks GENERAL: NAD SKIN: Warm and dry. HEAD: Normocephalic. EYES: No scleral icterus. No injection or drainage. NECK: Supple, trachea midline. No JVD or lymphadenopathy. CARDIOVASCULAR: Regular rate and rhythm without murmurs, gallops, or rubs. RESPIRATORY: Breath sounds equal bilaterally. No accessory muscle use. GASTROINTESTINAL: Abdomen soft, non-tender, nondistended. MUSCULOSKELETAL: No cyanosis, or edema. Dressing over her left knee- neurovascular intact BACK: Nontender without obvious deformity. No CVA tenderness. A/P Assessment and Plan 81-year-old man with Status post left total knee arthroplasty - Control pain, Morphine IV SPOON MAKER at bedside and [place] PO PRN available per pain scale. Monitor nausea, Zofran PRN. Monitor for constipation, Colace PRN. - Encourage use of Incentive Spirometer. - Dressing and passive motion per surgery recommendations. PT to treat and eval Hypertension - No history of hypertension. - Vasotec PRN available. Atrial fibrillation, chronic. Controlled. - Continue home Xarelto 10 mg PO daily. - EKG reviewed and showing atrial fibrillation, controlled rate. DVT prophylaxis: Xarelto Other chronic medical problems include dyslipidemia and peripheral neuropathy and are stable at this time. Home medications restarted as indicated. Rober Yoo MD January 15, 2017 10:38
[2017-01-15] MEDS: RIVAROXABAN 10 MG TAB PO SCH (11:13)
[2017-01-15 12:15] VITALS: BP 161/75; PULSE 92; RESP 16; TEMP 96; O2SAT 99
[2017-01-15] MEDS: ACETAMINOPHEN/HYDROcodone 325 MG/5 MG TAB PO PRN ×2 (15:10→22:17)
[2017-01-15 16:00] VITALS: BP 181/79; PULSE 94; RESP 16; TEMP 96.5; O2SAT 99
[2017-01-15 20:00] VITALS: BP 145/83; PULSE 107; RESP 22; TEMP 97.1; O2SAT 96
[2017-01-16] VITALS (7 sets, daily range): BP systolic 120–166; BP diastolic 69–88; PULSE 81–106; RESP 16–22; TEMP 96–98.6; O2SAT 95–97
[2017-01-16] MEDS: DEXT 5%-NACL 0.45% 1000 ML INJ 1,000 ML IV SCH ×4 (04:28→20:40)
[2017-01-16] MEDS: ACETAMINOPHEN/HYDROcodone 325 MG/5 MG TAB PO PRN ×3 (04:30→16:01)
[2017-01-16] MEDS: PCA - TOTAL MG MORPHINE DELIVERED PER SHIFT SCH ×4 (05:17→20:48)
[2017-01-16] MEDS: SODIUM CHLORIDE 0.9% FLUSH 5 ML FLUSH IVF SCH ×2 (09:00→20:47)
--- NOTE | 2017-01-16 10:01 | HHI.PR ---
Subjective Remarks Patient seen and examined, had episode of agitation overnight, stable this morning, alert and oriented 3. Objective Vitals Vital Signs Date Time Temp Pulse Resp B/P Pulse Ox O2 Delivery O2 Flow Rate FiO2 01/16/17 05:17 16 01/16/17 04:00 98.6 104 22 151/85 96 01/16/17 00:00 96.0 103 18 150/87 97 01/15/17 21:34 17 01/15/17 20:00 97.1 107 22 145/83 96 01/15/17 16:00 96.5 94 16 181/79 99 01/15/17 14:00 18 01/15/17 12:15 96.0 92 16 161/75 99 I/O 01/15/17 01/15/17 01/15/17 01/16/17 01/16/17 01/16/17 07:00 15:00 23:00 07:00 15:00 23:00 Intake Total 980 ml 360 ml 480 ml 240 ml Output Total 350 ml 300 ml 185 ml 500 ml Balance 630 ml 60 ml 295 ml -260 ml Intake Oral 240 ml 360 ml 480 ml 240 ml IV Total 740 ml Output Urine Total 300 ml 300 ml 500 ml Drainage Total 50 ml 185 ml # Voids 2 2 # Bowel Movements 0 0 0 0 Result Diagram: 01/15/17 0501 Objective Remarks GENERAL: NAD SKIN: Warm and dry. HEAD: Normocephalic. EYES: No scleral icterus. No injection or drainage. NECK: Supple, trachea midline. No JVD or lymphadenopathy. CARDIOVASCULAR: Regular rate and rhythm without murmurs, gallops, or rubs. RESPIRATORY: Breath sounds equal bilaterally. No accessory muscle use. GASTROINTESTINAL: Abdomen soft, non-tender, nondistended. MUSCULOSKELETAL: No cyanosis, or edema. Dressing over her left knee- neurovascular intact BACK: Nontender without obvious deformity. No CVA tenderness. A/P Assessment and Plan 81-year-old man with Status post left total knee arthroplasty Stable continue current postoperative care - Control pain, Morphine IV CERTIFIED PERSONAL TRAINER at bedside and [place] PO PRN available per pain scale. Monitor nausea, Zofran PRN. Monitor for constipation, Colace PRN. - Encourage use of Incentive Spirometer. - Dressing and passive motion per surgery recommendations. PT to treat and eval Hypertension - No history of hypertension. - Vasotec PRN available. Atrial fibrillation, chronic. Controlled. - Continue home Xarelto 10 mg PO daily. - EKG reviewed and showing atrial fibrillation, controlled rate. DVT prophylaxis: Xarelto Other chronic medical problems include dyslipidemia and peripheral neuropathy and are stable at this time. Home medications restarted as indicated. Discharge Planning Likely discharge 01/17/17 Rober Yoo MD January 16, 2017 10:01
[2017-01-16] MEDS: RIVAROXABAN 10 MG TAB PO SCH (11:37)
[2017-01-16] MEDS: ONDANSETRON HCL 4 MG/2 ML VIAL IVP PRN (16:07)
[2017-01-16] MEDS ORDERED: ACETAMIN 325 MG/BUTALBITAL 50 MG/CAFFEINE 40 MG TAB PO ONE (22:30)
[2017-01-17] VITALS: BP 151/75; PULSE 97; RESP 18; TEMP 98; O2SAT 97
[2017-01-17] MEDS ORDERED: BISACODYL 10 MG SUPP RECTAL PRN (00:15)
[2017-01-17] MEDS ORDERED: MAGNESIUM HYDROXIDE SUSP 30 ML CUP PO PRN (00:15)
[2017-01-17] MEDS: ONDANSETRON HCL 4 MG/2 ML VIAL IVP PRN (02:33)
[2017-01-17 07:52] VITALS: BP 152/80; PULSE 106; RESP 19; TEMP 98.5; O2SAT 97
[2017-01-17] MEDS: ACETAMINOPHEN/HYDROcodone 325 MG/5 MG TAB PO PRN ×2 (08:30→15:00)
[2017-01-17] MEDS: SODIUM CHLORIDE 0.9% FLUSH 5 ML FLUSH IVF SCH (08:32)
[2017-01-17 09:26] VITALS: O2SAT 96
--- NOTE | 2017-01-17 09:42 | HHI.PR ---
Subjective Remarks Patient seen and examined States, he had a bowel movement this morning Pain to left knee much more improved No acute event overnight Ready for discharge Objective Vitals Vital Signs Date Time Temp Pulse Resp B/P Pulse Ox O2 Delivery O2 Flow Rate FiO2 01/17/17 07:52 98.5 106 19 152/80 97 01/17/17 00:00 98.0 97 18 151/75 97 01/16/17 20:00 97.1 106 22 130/73 97 01/16/17 17:01 18 01/16/17 16:00 96.8 81 18 120/69 95 01/16/17 12:46 97 01/16/17 12:00 97.0 101 16 136/80 96 I/O 01/16/17 01/16/17 01/16/17 01/17/17 01/17/17 01/17/17 07:00 15:00 23:00 07:00 15:00 23:00 Intake Total 240 ml 480 ml 480 ml 480 ml Output Total 500 ml 550 ml Balance -260 ml -70 ml 480 ml 480 ml Intake Oral 240 ml 480 ml 480 ml 480 ml Output Urine Total 500 ml 550 ml # Voids 4 6 # Bowel Movements 0 0 0 0 Result Diagram: 01/15/17 0501 Objective Remarks GENERAL: NAD SKIN: Warm and dry. HEAD: Normocephalic. EYES: No scleral icterus. No injection or drainage. NECK: Supple, trachea midline. No JVD or lymphadenopathy. CARDIOVASCULAR: Regular rate and rhythm without murmurs, gallops, or rubs. RESPIRATORY: Breath sounds equal bilaterally. No accessory muscle use. GASTROINTESTINAL: Abdomen soft, non-tender, nondistended. MUSCULOSKELETAL: No cyanosis, or edema. Dressing over her left knee- neurovascular intact BACK: Nontender without obvious deformity. No CVA tenderness. A/P Assessment and Plan 81-year-old man with Status post left total knee arthroplasty Stable continue current postoperative care - Control pain, Morenci PO PRN available per pain scale. Monitor nausea, Zofran PRN. Monitor for constipation, Colace PRN. - Encourage use of Incentive Spirometer. - Dressing and passive motion per surgery recommendations. PT to treat and eval Hypertension - No history of hypertension. - Vasotec PRN available. Atrial fibrillation, chronic. Controlled. - Continue home Xarelto 10 mg PO daily. - EKG reviewed and showing atrial fibrillation, controlled rate. DVT prophylaxis: Xarelto Other chronic medical problems include dyslipidemia and peripheral neuropathy and are stable at this time. Home medications restarted as indicated. Discharge Planning Likely discharge today 01/17/17 Rober Yoo MD January 17, 2017 09:42
[2017-01-17 11:57] VITALS: BP 126/76; PULSE 102; RESP 19; TEMP 96.4; O2SAT 99
[2017-01-17] MEDS ORDERED: ACETAMIN 325 MG/BUTALBITAL 50 MG/CAFFEINE 40 MG TAB PO ONE (12:00)
[2017-01-17] MEDS: DEXT 5%-NACL 0.45% 1000 ML INJ 1,000 ML IV SCH (12:28)
[2017-01-17] MEDS: RIVAROXABAN 10 MG TAB PO SCH (12:35)
[2017-01-17] MEDS: PCA - TOTAL MG MORPHINE DELIVERED PER SHIFT SCH (14:00)
--- NOTE | 2017-01-17 16:29 | MD ---
cc: CAT CHAN NORMAN ZAHEDI, MINA M.D. ADMISSION DATE: 01/14/2017 DISCHARGE DATE: [place] Visit Search.Discharge Date January 17, 2017 ADMISSION DIAGNOSIS Severe osteoarthritis of the left knee, varus deformity left knee, patellofemoral disorder left knee and pain of the left knee. DISCHARGE DIAGNOSIS Severe osteoarthritis of the left knee, varus deformity left knee, patellofemoral disorder left knee and pain of the left knee. HISTORY An 81-year-old white male with a lengthy history of pain involving his left knee. In October of 2012 he underwent a right total knee arthroplasty for history of osteoarthritis and at that time he was aware of similar pain but of a lesser degree involving his left knee. His symptoms of his left knee were described as being tolerable for which the patient indicated his desire to continue with conservative management and did reasonably well throughout his postoperative period following his right knee surgery. He presented to the office in October of 2014 reporting that during the previous 6 months he was becoming progressively more symptomatic with pain about his left knee with a frequent grinding like sensation. He had been taking Naprosyn for pain management with only minimal benefit described. His x-ray studies revealed obvious degenerative changes with near [id number] apposition about the medial compartment associated with a varus deformity of approximately 10 degrees magnitude and intra-articular calcification throughout the lateral compartment. The findings and treatment options were reviewed. The patient elected to continue with conservative management for which he was prescribed meloxicam 15 milligrams and continued to conform to his own exercise program indicating that he felt he would benefit as much in that mode as opposed to returning to any formal therapy intervention. He returned to the office in November of this year indicating that with the passage of time he was becoming increasingly more symptomatic with pain that began to interfere with all ambulatory activities. He was accustomed to conforming to ballroom dancing with his at least three times per week but had to discontinue this routine because of increasing symptoms involving the left knee. His more current x-ray studies revealed obvious degenerative changes with [id number] apposition throughout the medial compartment associated with a varus deformity of 10 degrees magnitude and an intra-articular calcification throughout the lateral compartment and secondary degenerative involvement of the patellofemoral articulation. Findings and treatment options were again reviewed. The pros and cons of further conservative management versus operative intervention involving total knee arthroplasty were outlined in detail. Emphasis was made regarding the fact that the decision to proceed with surgery would be left entirely to the patient's discretion. The patient felt that he had exhausted all modes of conservative treatment and given the progressive nature of his pain about the left knee in conjunction with the favorable response that he had noted following surgery of his right knee, he expressed his desire to proceed with such treatment at this time. In compliance with his wishes he was currently admitted in order that left total knee arthroplasty be accomplished. His physical examination of the time admission revealed no significant swelling or effusion about the left knee. There was varus deformity with medial joint line tenderness. Apprehension and compression sign negative. Limited mobility in the 100 degrees range of flexion with pain at the extreme of motion, crepitation elicited. No collateral ligamentous instability. Amy test and drawer sign negative. Pivot shift and Edna sign positive for medial compartment pain. Straight-leg raising negative at 80 degrees. Mild antalgic gait. HOSPITAL COURSE Prior to admission to the hospital the patient had undergone medical evaluation and clearance for surgery as completed by his primary care physician, Dr. Carbone, cardiology clearance per Dr. Chan. He was taken to the operating room on 14 Jan 2017 and on that date underwent a left total knee arthroplasty completed in an uncomplicated manner. The patient was noted to have tolerated his operative procedure ___ and postoperative course stable thereafter. Hemoglobin/hematocrit assessment postoperatively was 13.3 and 39.9 respectively. The patient was progressively mobilized under the guidance of physical therapy being permitted weightbearing to tolerance about the left lower extremity. Follow up examination of his surgical wound noted to be intact healing favorably, no evidence of infection. Medical followup per the hospitalist service. DVT prophylaxis initiated. micrographics services supervisor consulted to assist with discharge planning. The patient had indicated his desire to be discharged to a rehab facility to continue his mobilization in that setting. Plans were finalized in this regard and pending medical clearance he was scheduled for transfer on the third postoperative day at which time he was noted making slow but steady progress with regards to his rehab program. He was scheduled be seen in office followup in approximately 4 weeks. His condition at the time of discharge was stable and prognosis favorable. DISCHARGE MEDICATIONS INCLUDED Hydrocodone 5/325 #60. The patient was also to continue with Xarelto 15 milligrams daily as taken preoperatively. MD NOEMI Hussein /6:31 AM /4:11 PM
== END 2017-01-17 16:24 | DRG 470 ==
LOC: HSDI 01-14 05:57 → N06A 01-14 17:53
PROVIDERS: ADMIT Orthopaedic Surgery; ATTEND Orthopaedic Surgery
PROC: 0SRD0J9 Replacement of Left Knee Joint with Synthetic Substitute, Cemented, Open Approach (ICD-10-PCS; principal; 2017-01-14 09:50)
DX: M17.12 Unilateral primary osteoarthritis, left knee (principal); G62.9 Polyneuropathy, unspecified; I48.2 Chronic atrial fibrillation; Z95.1 Presence of aortocoronary bypass graft; M21.162 Varus deformity, not elsewhere classified, left knee; I25.10 Atherosclerotic heart disease of native coronary artery without angina pectoris; E78.5 Hyperlipidemia, unspecified; Z79.01 Long term (current) use of anticoagulants
CPT/HCPCS: 73560; 85014; 85018; 86850; 86900; 86901; 93005; 94150; C1776; J0131; J0690; J1100; J2250; J2270; J2405; J2795; J3010; J7120; L1830

== ENCOUNTER → 2016-12-29 | Outpatient (CLI) | payer MEDICARE, BC ==
[~2016-12-29] MED LIST: ALPR.5 PO; ALPR0.5T99 PO; ASPI1TAB69 PO; ASPI81TA82 PO; BUTA1CAP PO; CLOP75 PO; GABA100C4 PO; GABA600T PO; HYDR-3516 PO; LORT5TAB PO; LOVA20TA PO; MELO7.5T4 PO; MORPHINE SULFATE 4 MG/ML INJ ONE; NAPR-576 PO; XARE15TA PO; walker with wheels
--- NOTE | 2016-12-29 10:49 | RADRPT ---
EXAM DATE/TIME: 12/29/2016 10:45 [place] COMPARISON: No previous studies available for comparison. INDICATIONS : Evaluate for pneumonia, pneumothorax, or communicable disease. Pre op for knee replacement. MEDICAL HISTORY : None. SURGICAL HISTORY : CABG. ENCOUNTER: Initial ACUITY: 1 day PAIN SCORE: 0/10 LOCATION: Bilateral chest FINDINGS: PA and lateral views of the chest demonstrate the lungs to be symmetrically aerated without evidence of mass, infiltrate or effusion. Cardiomegaly and previous CABG. Slight increase in pulmonary vascula rity. No pulmonary edema or pleural effusion. The cardiomediastinal contours are unremarkable. Osse ous structures are intact. CONCLUSION: Cardiomegaly and CABG with slight increased pulmonary vascularity. Rober Machuca MD on December 29, 2016 at 10:46 Board Certified Radiologist. This report was verified electronically.
[2016-12-29 10:52] LABS: AUTOMATED NEUTROPHIL # 2.9 TH/MM3 (1.8-7.7); BASOPHIL % 0.7 % (0.0-2.0); EOSINOPHIL # 0.2 TH/MM3 (0-0.4); EOSINOPHIL % 3.2 % (0.0-4.0); HEMATOCRIT 41.6 % (39.0-51.0); HEMO FLAGS DIFF FINAL; LYMPH % 27.7 % (9.0-44.0); LYMPHOCYTE # 1.4 TH/MM3 (1.0-4.8); MEAN CELL VOLUME 94.2 FL (80.0-100.0); MEAN CORPUSCULAR HEMOGLOBIN 32.6 PG (27.0-34.0); MEAN CORPUSCULAR HGB CONC 34.6 % (32.0-36.0); MONO % 10.5 % (0.0-8.0); NEUT % 57.9 % (16.0-70.0); PLATELET COUNT 175 TH/MM3 (150-450); RED BLOOD COUNT 4.41 MIL/MM3 (4.50-5.90); RED CELL DISTRIBUTION WIDTH 13.3 % (11.6-17.2)
[2016-12-29 10:57] LABS: BLOOD, URINE NEG (NEG); COMMENT (UR) CULT NOT INDICATED; CULTURE IF INDICATED CULT NOT INDICATED; GLUCOSE,URINE NEG (NEG); KETONE, URINE NEG (NEG); MUCUS URINE FEW /lpf (OCC); NITRITE,URINE NEG (NEG); PH, URINE 5.5 (5.0-8.5); URINE COLOR YELLOW (YELLW/STRAW)
[2016-12-29 11:04] LABS: INTERNATIONAL NORMALIZED RATIO 1.1 RATIO; PROTHROMBIN TIME - PATIENT 11.9 SEC (9.8-11.6)
[2016-12-29 11:56] LABS: BICARBONATE 26.7 MEQ/L (21.0-32.0); POTASSIUM 3.8 MEQ/L (3.5-5.1)
== END ==
LOC: CPRE 09:43
PROVIDERS: ATTEND Orthopaedic Surgery
DX: Z01.812 Encounter for preprocedural laboratory examination (principal); Z01.818 Encounter for other preprocedural examination; M17.12 Unilateral primary osteoarthritis, left knee; Z79.01 Long term (current) use of anticoagulants
CPT/HCPCS: 36415; 71020; 80048; 81001; 85025; 85610; J2270